=== PATIENT | male | born 2000 | race Two or more races ===

== ENCOUNTER 2021-04-27 15:08 | Emergency (ER) | payer OTHER ==
[~2021-04-27] VITALS: Ht 167.6 cm; Wt 68.0 kg
[2021-04-27 16:01] VITALS: BP 107/62
[2021-04-27] MEDS ORDERED: IBUP800T27 PO (16:44)
== END 2021-04-27 17:08 | disposition home or self-care (01) ==
LOC: EDBD 15:08 → ER 15:08
DX: S39.012A Strain of muscle, fascia and tendon of lower back, initial encounter (principal); V43.52XA Car driver injured in collision with other type car in traffic accident, initial encounter; Y93.89 Activity, other specified; Y92.410 Unspecified street and highway as the place of occurrence of the external cause; Y99.8 Other external cause status
CPT/HCPCS: 72100